=== PATIENT | female | born 1965 | race African-American/Black ===

== ENCOUNTER 2017-08-03 20:02 | Inpatient (IN) | payer OTHER ==
[~2017-08-03] VITALS: Ht 172.7 cm; Wt 113.9 kg
[~2017-08-03 20:02] MED LIST: CITA10TA4 PO; LEVO500T59 PO; LISI-338 PO; POTA20TA12 PO; TRIA1CAP3 PO
[2017-08-03] MEDS ORDERED: NITROGLYCERIN OINT 1 GM PACKET. TP ONE (20:30)
[2017-08-03] MEDS ORDERED: ASPIRIN CHEWABLE 81 MG TABLET. PO ONE (20:30)
[2017-08-03 20:34] LABS: BASO # 0.1 x10^3/uL (0.0-0.2); BASO % 1 % (0-3); EOS % 5 % (0-3); HEMATOCRIT 42.5 % (36.0-47.0); HEMOGLOBIN 14.4 g/dL (12.0-15.5); LYMPH # 3.3 x10^3/uL (1.0-4.8); LYMPH % 42 % (24-48); MEAN CORPUSCULAR HEMOGLOBIN 30 pg (25-35); MEAN CORPUSCULAR HGB CONC 34 g/dL (31-37); MEAN CORPUSCULAR VOLUME 89 fL (79-100); MONO % 8 % (0-9); NEUT % 44 % (31-73); PLATELET COUNT 255 x10^3/uL (140-400); RED BLOOD COUNT 4.78 x10^6/uL (3.50-5.40); WHITE BLOOD COUNT 7.8 x10^3/uL (4.0-11.0)
[2017-08-03] MEDS ORDERED: BISACODYL 10 MG SUPP.RECT. PR PRN (21:00)
[2017-08-03] MEDS ORDERED: CALCIUM CARBONATE 500 MG TAB.CHEW PO PRN (21:00)
[2017-08-03] MEDS ORDERED: MORPHINE SULFATE 4 MG/ML DISP.SYRIN. IV PRN (21:00)
[2017-08-03] MEDS ORDERED: ONDANSETRON PF 4 MG/2 ML VIAL. IV PRN (21:00)
[2017-08-03] MEDS ORDERED: ZOLPIDEM 5 MG TABLET. PO PRN (21:00)
[2017-08-03] MEDS ORDERED: KETOROLAC 15 MG/ML VIAL. IV PRN (21:00)
[2017-08-03] MEDS ORDERED: MAG HYDROX/ALUMINUM HYD/SIMETH 30 ML ORAL.SUSP PO PRN (21:00)
[2017-08-03] MEDS ORDERED: PROCHLORPERAZINE 10 MG/2 ML VIAL. IV PRN (21:00)
[2017-08-03] MEDS ORDERED: ACETAMINOPHEN 325 MG TABLET. PO PRN (21:00)
[2017-08-03] MEDS ORDERED: PROCHLORPERAZINE 25 MG SUPP.RECT. PR PRN (21:00)
[2017-08-03] MEDS ORDERED: IBUPROFEN 600 MG TABLET. PO PRN (21:00)
[2017-08-03] MEDS ORDERED: MAGNESIUM HYDROXIDE 2,400 MG/30 ML ORAL.SUSP. PO PRN (21:00)
[2017-08-03] MEDS ORDERED: LACTULOSE 20 GM/30 ML SOLUTION. PO PRN (21:00)
--- NOTE | 2017-08-03 21:13 | PDOC1 ---
History and Physical Date of Admission Date of Admission DATE: 08/03/17 TIME: 21:07 Identification/Chief Complaint Chief Complaint left sided cp moved to jaw Problems: Source Source: Caregiver, Chart review, Patient History of Present Illness History of Present Illness 52 y.o AA female with only HTN as past medical takes triamterene HCTZ at home, non smoker, non drinker, no personal hx CAD,. was at her son's [employer] today, was walking when had CP left sided, "uncomfortable" involved her left neck and jaw, mild SOA but no presyncopal or diaphoretic sxs., EKG ok, Trops pending, Admitted for CP r.o ACS, NO jj cardiac work up, has a pCP. GOt ASA 4 tabs and nitro, still feels like she has a migraine headache, pain in her left eye, photophobia but denies any hx migraine headache Past Medical History Cardiovascular: HTN Past Surgical History Past Surgical History: No pertinent history Family History Family History: No Significant Social History Smoke: No ALCOHOL: none Drugs: None Current Medications Current Medications Current Medications Nitroglycerin (Nitro-Bid Oint) 1 inch 1X ONCE TP Last administered on 20:44; Start 08/03/17 at 20:30; Stop 08/03/17 at 20:31; Status DC Aspirin (Children'S Aspirin) 324 mg 1X ONCE PO Last administered on 08/03/17t 20:43; Start 08/03/17 at 20:30; Stop 08/03/17 at 20:31; Status DC Ondansetron HCl (Zofran) 4 mg PRN Q6HRS PRN IV NAUSEA/VOMITING; Start 08/03/17 at 21:00; Status UNV Prochlorperazine Edisylate (Compazine) 10 mg PRN Q6HRS PRN IV NAUSEA/VOMITING; Start 08/03/17 at 21:00; Status UNV Prochlorperazine (Compazine) 25 mg PRN Q12HR PRN ID NAUSEA/VOMITING; Start at 21:00; Status UNV Al Hydroxide/Mg Hydroxide (Mylanta Plus Xs) 30 ml PRN Q3HRS PRN PO HEARTBURN / GAS; Start 08/03/17 at 21:00; Status UNV Calcium Carbonate/ Glycine (Tums) 500 mg PRN Q3HRS PRN PO UPSET STOMACH; Start 08/03/17 at 21:00; Status UNV Zolpidem Tartrate (Ambien) 5 mg PRN QHS PRN PO INSOMNIA, MAY REPEAT IN 1HR; Start 08/03/17 at 21:00; Status UNV Oxycodone HCl (Roxicodone) 5 mg PRN Q3HRS PRN PO BREAKTHROUGH PAIN; Start 08/03 at 21:00; Status UNV Morphine Sulfate 2 mg PRN Q2HR PRN IV PAIN; Start 08/03/17 at 21:00; Status UNV Ketorolac Tromethamine (Toradol) 15 mg PRN Q6HRS PRN IV PAIN; Start 08/03/17 at 21:00; Stop 08/08/17 at 20:59; Status UNV Acetaminophen (Tylenol) 650 mg PRN Q6HRS PRN PO Headaches, Temp > 101.5F; Start 08/03/17 at 21:00; Status UNV Ibuprofen (Motrin) 600 mg PRN Q6HRS PRN PO MILD PAIN; Start 08/03/17 at 21:00; Status UNV Magnesium Hydroxide (Milk Of Magnesia) 2,400 mg PRN Q12HR PRN PO CONSTIPATION; Start 08/03/17 at 21:00; Status UNV Lactulose 20 gm PRN Q12HR PRN PO CONSTIPATION; Start 08/03/17 at 21:00; Status UNV Bisacodyl (Dulcolax Supp) 10 mg PRN DAILY PRN ID CONSTIPATION; Start 08/03/17 at 21:00; Status UNV Enoxaparin Sodium (Lovenox 40mg Syringe) 40 mg Q24H SQ ; Start 08/03/17 at 21:00 ; Status UNV Active Scripts Active Levaquin (Levofloxacin) 500 Mg Tablet 1 Tab PO DAILY Lisinopril 5 Mg Tablet 1 Tab PO DAILY 30 Days Reported Citalopram Hbr (Citalopram Hydrobromide) 10 Mg Tablet 1 Tab PO DAILY Allergies Allergies: Coded Allergies: No Known Drug Allergies (Unverified , 06/17/14) ROS Review of System as per HPI all else is neg Physical Exam General: Alert, Oriented X3, Cooperative, No acute distress HEENT: Atraumatic, PERRLA, EOMI Lungs: Clear to auscultation, Normal air movement Heart: S1S2, RRR, no thrills, no rubs, no gallops, no murmurs, murmurs Cardiovascular: S1, S2 Breasts: Normal, Rt breast nml w/o mass, Lt breast nml w/o mass, Nipples normal Abdomen: Normal bowel sounds, Soft, No tenderness, No hepatosplenomegaly, No masses Rectal Exam: not examined Extremities: No clubbing, No cyanosis, No edema, Normal pulses, No tenderness/ swelling Skin: No rashes, No breakdown, No significant lesion Neuro: Normal gait, Normal speech, Strength at 5/5 X4 ext, Normal tone, Sensation intact, Cranial nerves 3-12 NL, Reflexes 2+ Psych/Mental Status: Mental status NL, Mood NL Vitals Vitals Vital Signs Date Time Temp Pulse Resp B/P (MAP) Pulse Ox O2 Delivery O2 Flow Rate FiO2 08/03/17 20:44 68 136/101 08/03/17 20:14 98.7 20 96 Room Air 98.7 Labs Labs Laboratory Tests Test 08/03/17 20:09 White Blood Count 7.8 x10^3/uL (4.0-11.0) Red Blood Count 4.78 x10^6/uL (3.50-5.40) Hemoglobin 14.4 g/dL (12.0-15.5) Hematocrit 42.5 % (36.0-47.0) Mean Corpuscular Volume 89 fL (79-100) Mean Corpuscular Hemoglobin 30 pg (25-35) Mean Corpuscular Hemoglobin Concent 34 g/dL (31-37) Red Cell Distribution Width 15.0 % (11.5-14.5) Platelet Count 255 x10^3/uL (140-400) Neutrophils (%) (Auto) 44 % (31-73) Lymphocytes (%) (Auto) 42 % (24-48) Monocytes (%) (Auto) 8 % (0-9) Eosinophils (%) (Auto) 5 % (0-3) Basophils (%) (Auto) 1 % (0-3) Neutrophils # (Auto) 3.4 x10^3uL (1.8-7.7) Lymphocytes # (Auto) 3.3 x10^3/uL (1.0-4.8) Monocytes # (Auto) 0.6 x10^3/uL (0.0-1.1) Eosinophils # (Auto) 0.4 x10^3/uL (0.0-0.7) Basophils # (Auto) 0.1 x10^3/uL (0.0-0.2) Laboratory Tests Test 08/03/17 20:09 White Blood Count 7.8 x10^3/uL (4.0-11.0) Red Blood Count 4.78 x10^6/uL (3.50-5.40) Hemoglobin 14.4 g/dL (12.0-15.5) Hematocrit 42.5 % (36.0-47.0) Mean Corpuscular Volume 89 fL (79-100) Mean Corpuscular Hemoglobin 30 pg (25-35) Mean Corpuscular Hemoglobin Concent 34 g/dL (31-37) Red Cell Distribution Width 15.0 % (11.5-14.5) Platelet Count 255 x10^3/uL (140-400) Neutrophils (%) (Auto) 44 % (31-73) Lymphocytes (%) (Auto) 42 % (24-48) Monocytes (%) (Auto) 8 % (0-9) Eosinophils (%) (Auto) 5 % (0-3) Basophils (%) (Auto) 1 % (0-3) Neutrophils # (Auto) 3.4 x10^3uL (1.8-7.7) Lymphocytes # (Auto) 3.3 x10^3/uL (1.0-4.8) Monocytes # (Auto) 0.6 x10^3/uL (0.0-1.1) Eosinophils # (Auto) 0.4 x10^3/uL (0.0-0.7) Basophils # (Auto) 0.1 x10^3/uL (0.0-0.2) VTE Prophylaxis Ordered VTE Prophylaxis Devices: Yes VTE Pharmacological Prophylaxi: Yes Assessment/Plan Assessment/Plan 1. Left sided CP in an adult, initial encounter 2. HEadaches, migraines vs something else (related to her CP?) 3. HTN, controlled PALn: Admit Cycle CE Cards consult COnt triamterene HCTZ home regimen NSAID Lovenox 120 x 1 just bec of CP nature (neck jaw radiation etc) Trops first set STILL PENDING Lipid panel in AM She is adamant it is not migraines - did order NSAIDs, if persist imitrex might be in order Seen at [facility] LIS Goss MD Aug 03, 2017 21:13
[2017-08-03] MEDS ORDERED: SUMAtriptan SUCCINATE 25 MG TABLET PO PRN (21:15)
[2017-08-03 22:13] LABS: ALBUMIN 3.8 g/dL (3.4-5.0); ALBUMIN/GLOBULIN RATIO 1.3 (1.0-1.7); CALCIUM 9.1 mg/dL (8.5-10.1); CREATININE 1.2 mg/dL (0.6-1.0); GFR 56.9; TOTAL BILIRUBIN 0.4 mg/dL (0.2-1.0); TOTAL PROTEIN 6.8 g/dL (6.4-8.2)
[2017-08-03 22:15] LABS: POTASSIUM 2.8 mmol/L (3.5-5.1)
--- NOTE | 2017-08-03 23:04 | PHYS DOC ---
Past Medical History Past Medical History: Depression, Hypertension Past Surgical History: , Tubal ligation Alcohol Use: None Drug Use: None Adult General Chief Complaint Chief Complaint: CHEST PAIN HPI HPI Patient is a 52 year old resents the ER today complaining of midsternal chest pain. Patient reports pain started while she was exerting herself at her son's birthday green party. Patient denies any fevers shakes chills nausea vomiting or diarrhea. Patient does complain of some mild shortness of breath. Patient complaining of pain radiating to her jaw. Patient denies any prior history of heart disease. Patient has never had a stress test in the past. Patient has any history of hypertension but no diabetes liver kidney or lung problems. Patient has no history of coronary artery disease. Patient does not smoke or drink. Patient is allergic to amlodipine and lisinopril. Review of systems Constitutional: Denies fever or chills Eyes: Denies change in visual acuity, redness, or eye pain All other review systems are negative except as documented in the history of present illness portion. Physical exam Constitutional: Well developed, well nourished, no acute distress, non-toxic appearance. HENT: Normocephalic, atraumatic, bilateral external ears normal, oropharynx moist, no oral exudates, nose normal. Eyes: conjunctiva normal, no discharge. Neck: Normal range of motion, no tenderness, supple, no stridor. Cardiovascular:Heart rate regular rhythm, Lungs & Thorax: Bilateral breath sounds clear to auscultation Abdomen: Bowel sounds normal, soft, no tenderness, no masses, no pulsatile masses. Skin: Warm, dry, Back: No tenderness, Extremities: No tenderness, no cyanosis, Neurologic: Alert and oriented X 3, normal motor function, normal sensory function, no focal deficits noted. Psychologic: Affect normal, judgement normal, mood normal. EKG reveals normal sinus rhythm with nonspecific ST-T wave abnormalities. No STEMI. Chest x-ray reveals no infiltrates or effusions. Assessment and plan This is a 52-year-old female with history of hypertension presents here today complaining of midsternal chest pain. Patient does have significant cardiac risk factors and presents with a story that will be consistent with angina. Patient is currently pain-free. Patient will be admitted to the hospital for further cardiac evaluation. Current Medications Current Medications Current Medications Medications (Trade) Dose Ordered Sig/Darren Start Time Stop Time Status Last Admin Dose Admin Acetaminophen (Tylenol) 650 mg PRN Q6HRS PRN 08/03/17 21:00 Al Hydroxide/Mg Hydroxide (Mylanta Plus Xs) 30 ml PRN Q3HRS PRN 08/03/17 21:00 Aspirin (Children'S Aspirin) 324 mg 1X ONCE 08/03/17 20:30 08/03/17 20:31 DC 08/03/17 20:43 324 MG Bisacodyl (Dulcolax Supp) 10 mg PRN DAILY PRN 08/03/17 21:00 Calcium Carbonate/ Glycine (Tums) 500 mg PRN Q3HRS PRN 08/03/17 21:00 Enoxaparin Sodium (Lovenox 120mg Syringe) 110 mg 1X ONCE 08/03/17 21:30 08/03/17 21:31 DC 08/03/17 21:36 110 MG Enoxaparin Sodium (Lovenox 40mg Syringe) 40 mg Q24H 08/04/17 21:00 Ibuprofen (Motrin) 600 mg PRN Q6HRS PRN 08/03/17 21:00 Ketorolac Tromethamine (Toradol) 15 mg PRN Q6HRS PRN 08/03/17 21:00 08/08/17 20:59 08/03/17 21:37 15 MG Lactulose 20 gm PRN Q12HR PRN 08/03/17 21:00 Magnesium Hydroxide (Milk Of Magnesia) 2,400 mg PRN Q12HR PRN 08/03/17 21:00 Morphine Sulfate 2 mg PRN Q2HR PRN 08/03/17 21:00 Nitroglycerin (Nitro-Bid Oint) 1 inch 1X ONCE 08/03/17 20:30 08/03/17 20:31 DC 08/03/17 20:44 1 INCH Ondansetron HCl (Zofran) 4 mg PRN Q6HRS PRN 08/03/17 21:00 Oxycodone HCl (Roxicodone) 5 mg PRN Q3HRS PRN 08/03/17 21:00 Prochlorperazine (Compazine) 25 mg PRN Q12HR PRN 08/03/17 21:00 Prochlorperazine Edisylate (Compazine) 10 mg PRN Q6HRS PRN 08/03/17 21:00 Sumatriptan Succinate (Imitrex) 25 mg PRN Q2HR PRN 08/03/17 21:15 Zolpidem Tartrate (Ambien) 5 mg PRN QHS PRN 08/03/17 21:00 Allergies Allergies Allergies Coded Allergies Type Severity Reaction Last Updated Verified No Known Drug Allergies 06/17/14 No Current Patient Data Vital Signs Vital Signs Date Time Temp Pulse Resp B/P (MAP) Pulse Ox O2 Delivery O2 Flow Rate FiO2 08/03/17 20:44 68 136/101 08/03/17 20:14 98.7 20 96 Room Air 98.7 Lab Values Laboratory Tests Test 08/03/17 20:09 08/03/17 21:40 White Blood Count 7.8 x10^3/uL (4.0-11.0) Red Blood Count 4.78 x10^6/uL (3.50-5.40) Hemoglobin 14.4 g/dL (12.0-15.5) Hematocrit 42.5 % (36.0-47.0) Mean Corpuscular Volume 89 fL (79-100) Mean Corpuscular Hemoglobin 30 pg (25-35) Mean Corpuscular Hemoglobin Concent 34 g/dL (31-37) Red Cell Distribution Width 15.0 % (11.5-14.5) H Platelet Count 255 x10^3/uL (140-400) Neutrophils (%) (Auto) 44 % (31-73) Lymphocytes (%) (Auto) 42 % (24-48) Monocytes (%) (Auto) 8 % (0-9) Eosinophils (%) (Auto) 5 % (0-3) H Basophils (%) (Auto) 1 % (0-3) Neutrophils # (Auto) 3.4 x10^3uL (1.8-7.7) Lymphocytes # (Auto) 3.3 x10^3/uL (1.0-4.8) Monocytes # (Auto) 0.6 x10^3/uL (0.0-1.1) Eosinophils # (Auto) 0.4 x10^3/uL (0.0-0.7) Basophils # (Auto) 0.1 x10^3/uL (0.0-0.2) Sodium Level 140 mmol/L (136-145) Potassium Level 2.8 mmol/L (3.5-5.1) *L Chloride Level 101 mmol/L (98-107) Carbon Dioxide Level 32 mmol/L (21-32) Anion Gap 7 (6-14) Blood Urea Nitrogen 11 mg/dL (7-20) Creatinine 1.2 mg/dL (0.6-1.0) H Estimated GFR (Cockcroft-Gault) 56.9 BUN/Creatinine Ratio 9 (6-20) Glucose Level 120 mg/dL (70-99) H Calcium Level 9.1 mg/dL (8.5-10.1) Total Bilirubin 0.4 mg/dL (0.2-1.0) Aspartate Amino Transferase (AST) 25 U/L (15-37) Alanine Aminotransferase (ALT) 41 U/L (14-59) Alkaline Phosphatase 64 U/L (46-116) Troponin I Quantitative < 0.017 ng/mL (0.000-0.055) Total Protein 6.8 g/dL (6.4-8.2) Albumin 3.8 g/dL (3.4-5.0) Albumin/Globulin Ratio 1.3 (1.0-1.7) Laboratory Tests 08/03/17 20:09 Laboratory Tests 08/03/17 21:40 EKG EKG [] Radiology/Procedures Radiology/Procedures [] Course & Med Decision Making Course & Med Decision Making Pertinent Labs and Imaging studies reviewed. (See chart for details) [] Dragon Disclaimer Dragon Disclaimer This electronic medical record was generated, in whole or in part, using a voice recognition dictation system. Departure Departure Impression: Primary Impression: Chest pain Additional Impression: Hypokalemia Disposition: ADMITTED INPATIENT Admitting Physician: Sylwia Marie Condition: IMPROVED Referrals: FRANCOIS LINO MD (PCP) Problem Qualifiers SÁNCHEZ ASKEW MD Aug 03, 2017 23:04
[2017-08-03] MEDS ORDERED: POTASSIUM CHLORIDE 20 MEQ TABLET.ER. PO ONE (23:30)
[2017-08-04 00:37] VITALS: BP 140/79
[2017-08-04] MEDS ORDERED: TRIA1CAP3 PO (01:22)
[2017-08-04 03:00] VITALS: BP 121/56
[2017-08-04 06:22] LABS: CKMB MASS 1.9 ng/mL (0.0-3.6)
[2017-08-04 07:00] VITALS: BP 120/68
--- NOTE | 2017-08-04 08:28 | RAD ---
AP chest. History: Chest pain AP view was taken of the chest. Lungs are clear. Heart is normal in size without heart failure. There is no effusion. Impression: 1. No acute chest disease.
--- NOTE | 2017-08-04 08:41 | CONS ---
DATE OF CONSULTATION: 08/04/2017 REASON FOR CONSULTATION: Chest pain and jaw pain. HISTORY OF PRESENT ILLNESS: The patient is a pleasant 52-year-old woman who came in to the hospital with some chest discomfort, but most prominently reports that she has had jaw pain and throbbing headache involving her left eye. In the ER, initial evaluation from a cardiac perspective did not reveal any significant pathology. In speaking with the patient regarding her cardiac symptoms, she denies any chest pain or shortness of breath at baseline. Most recently, she worked out on recumbent bike and reports that she had some palpitations, but otherwise did not have any significant chest discomfort or dyspnea. 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 She denies any prior cardiovascular history, otherwise. NYHA functional class at this time is 1. PAST MEDICAL HISTORY: Hypertension. SOCIAL HISTORY: The patient denies any alcohol, tobacco or illicit drug use. She is . FAMILY HISTORY: Noncontributory. ALLERGIES: AMLODIPINE AND LISINOPRIL. CARDIOVASCULAR MEDICATIONS: Hydrochlorothiazide, triamterene. REVIEW OF SYSTEMS: Negative for 10 out of 14 systems reviewed, unless otherwise mentioned above in HPI. PHYSICAL EXAMINATION: VITAL SIGNS: Afebrile, 84, 17, 121/56, 96% on room air. GENERAL: She is sleepy from pain medications, but otherwise easily arousable. HEAD AND NECK: Unremarkable. MUSCULOSKELETAL: She does have pain upon palpation of the left jaw and left evangelical. She has decreased range of motion. CARDIAC: Regular rate and rhythm without murmurs, rubs or gallops. LUNGS: Clear to auscultation bilaterally. ABDOMEN: Obese, but nontender and soft. EXTREMITIES: Without any clubbing, cyanosis or edema. There are diminished pulses on the right pedal area. MUSCULOSKELETAL: No trauma. NEUROLOGIC: There are no focal deficits, but she appears to have some mild photophobia, which resolved over during the interview. DIAGNOSTIC STUDIES: Potassium 2.8, creatinine 1.2. Troponin negative x 2, hemoglobin and platelets within normal limits. EKG is unavailable for review, but telemetry does not show any arrhythmias or significant ST-T wave changes. Chest x-ray reviewed and does not reveal any significant pathology. IMPRESSION: 1. Noncardiac chest discomfort. 2. New onset likely stress or migrainous headaches. 3. History of hypertension with hypokalemia secondary to diuretic use. RECOMMENDATIONS: Given the patient's persistent chest discomfort, although she has negative cardiac enzymes and EKG that does not reveal any significant abnormalities. Given her postmenopausal state and her symptoms, we will pursue ischemic testing in the form of a myocardial perfusion imaging study and rule out any significant obstructive pathology. Thank you for this consultation. JAGDISH BAILEY MD DR: SAIMA/miguel JOB#: [id number] / [id number]
[2017-08-04] MEDS ORDERED: REGADENOSON 0.4 MG/5 ML DISP.SYRIN. IV ONE (09:00)
[2017-08-04] MEDS: TRIAMTERENE/HCTZ 37.5/25MG TABLET. PO SCH (11:46)
[2017-08-04] MEDS: oxyCODONE IR 5 MG TABLET PO PRN ×2 (11:47→21:07)
--- NOTE | 2017-08-04 12:14 | PDOC ---
PROGRESS NOTES Chief Complaint Chief Complaint Assessment/Plan 1. Left sided CP in an adult, initial encounter 2. HEadaches, stress vs migraines 3. HTN, controlled History of Present Illness History of Present Illness says still left sided headaches but better Wishes to see neurologist MPI ordered and done by cards - read pending VS ok PLan: Await MPI Consult neuro Did get brii - unknown relief yet Juan RN she will try imitrex next time MAke NSAID RTC instead or prn Juan RN Suzan Vitals Vitals Vital Signs Date Time Temp Pulse Resp B/P (MAP) Pulse Ox O2 Delivery O2 Flow Rate FiO2 08/04/17 11:47 Room Air 08/04/17 07:00 98.2 69 24 120/68 (85) 96 98.2 Physical Exam General: Alert, Oriented X3, Cooperative, No acute distress Lungs: Clear Abdomen: Normal bowel sounds, Soft, No tenderness, No hepatosplenomegaly, No masses Extremities: No clubbing, No cyanosis, No edema, Normal pulses, No tenderness/ swelling Skin: No rashes, No breakdown, No significant lesion Labs LABS Laboratory Tests Test 08/03/17 20:09 08/03/17 21:40 08/04/17 04:30 White Blood Count 7.8 x10^3/uL (4.0-11.0) Red Blood Count 4.78 x10^6/uL (3.50-5.40) Hemoglobin 14.4 g/dL (12.0-15.5) Hematocrit 42.5 % (36.0-47.0) Mean Corpuscular Volume 89 fL (79-100) Mean Corpuscular Hemoglobin 30 pg (25-35) Mean Corpuscular Hemoglobin Concent 34 g/dL (31-37) Red Cell Distribution Width 15.0 % (11.5-14.5) Platelet Count 255 x10^3/uL (140-400) Neutrophils (%) (Auto) 44 % (31-73) Lymphocytes (%) (Auto) 42 % (24-48) Monocytes (%) (Auto) 8 % (0-9) Eosinophils (%) (Auto) 5 % (0-3) Basophils (%) (Auto) 1 % (0-3) Neutrophils # (Auto) 3.4 x10^3uL (1.8-7.7) Lymphocytes # (Auto) 3.3 x10^3/uL (1.0-4.8) Monocytes # (Auto) 0.6 x10^3/uL (0.0-1.1) Eosinophils # (Auto) 0.4 x10^3/uL (0.0-0.7) Basophils # (Auto) 0.1 x10^3/uL (0.0-0.2) Sodium Level 140 mmol/L (136-145) Potassium Level 2.8 mmol/L (3.5-5.1) Chloride Level 101 mmol/L (98-107) Carbon Dioxide Level 32 mmol/L (21-32) Anion Gap 7 (6-14) Blood Urea Nitrogen 11 mg/dL (7-20) Creatinine 1.2 mg/dL (0.6-1.0) Estimated GFR (Cockcroft-Gault) 56.9 BUN/Creatinine Ratio 9 (6-20) Glucose Level 120 mg/dL (70-99) Calcium Level 9.1 mg/dL (8.5-10.1) Total Bilirubin 0.4 mg/dL (0.2-1.0) Aspartate Amino Transf (AST/SGOT) 25 U/L (15-37) Alanine Aminotransferase (ALT/SGPT) 41 U/L (14-59) Alkaline Phosphatase 64 U/L (46-116) Troponin I Quantitative < 0.017 ng/mL (0.000-0.055) < 0.017 ng/mL (0.000-0.055) Total Protein 6.8 g/dL (6.4-8.2) Albumin 3.8 g/dL (3.4-5.0) Albumin/Globulin Ratio 1.3 (1.0-1.7) Creatine Kinase 314 U/L (26-192) Creatine Kinase MB (Mass) 1.9 ng/mL (0.0-3.6) Creatine Kinase MB Relative Index 0.6 % (0-4) Review of Systems Review of Systems headaches, left sided jaw pain Assessment and Plan Assessmemt and Plan Problems Medical Problems: (1) Hypokalemia Status: Acute Problems: Comment Review of Relevant I have reviewed the following items jolanta (where applicable) has been applied. Labs Laboratory Tests Test 08/03/17 20:09 08/03/17 21:40 08/04/17 04:30 White Blood Count 7.8 x10^3/uL (4.0-11.0) Red Blood Count 4.78 x10^6/uL (3.50-5.40) Hemoglobin 14.4 g/dL (12.0-15.5) Hematocrit 42.5 % (36.0-47.0) Mean Corpuscular Volume 89 fL (79-100) Mean Corpuscular Hemoglobin 30 pg (25-35) Mean Corpuscular Hemoglobin Concent 34 g/dL (31-37) Red Cell Distribution Width 15.0 % (11.5-14.5) Platelet Count 255 x10^3/uL (140-400) Neutrophils (%) (Auto) 44 % (31-73) Lymphocytes (%) (Auto) 42 % (24-48) Monocytes (%) (Auto) 8 % (0-9) Eosinophils (%) (Auto) 5 % (0-3) Basophils (%) (Auto) 1 % (0-3) Neutrophils # (Auto) 3.4 x10^3uL (1.8-7.7) Lymphocytes # (Auto) 3.3 x10^3/uL (1.0-4.8) Monocytes # (Auto) 0.6 x10^3/uL (0.0-1.1) Eosinophils # (Auto) 0.4 x10^3/uL (0.0-0.7) Basophils # (Auto) 0.1 x10^3/uL (0.0-0.2) Sodium Level 140 mmol/L (136-145) Potassium Level 2.8 mmol/L (3.5-5.1) Chloride Level 101 mmol/L (98-107) Carbon Dioxide Level 32 mmol/L (21-32) Anion Gap 7 (6-14) Blood Urea Nitrogen 11 mg/dL (7-20) Creatinine 1.2 mg/dL (0.6-1.0) Estimated GFR (Cockcroft-Gault) 56.9 BUN/Creatinine Ratio 9 (6-20) Glucose Level 120 mg/dL (70-99) Calcium Level 9.1 mg/dL (8.5-10.1) Total Bilirubin 0.4 mg/dL (0.2-1.0) Aspartate Amino Transf (AST/SGOT) 25 U/L (15-37) Alanine Aminotransferase (ALT/SGPT) 41 U/L (14-59) Alkaline Phosphatase 64 U/L (46-116) Troponin I Quantitative < 0.017 ng/mL (0.000-0.055) < 0.017 ng/mL (0.000-0.055) Total Protein 6.8 g/dL (6.4-8.2) Albumin 3.8 g/dL (3.4-5.0) Albumin/Globulin Ratio 1.3 (1.0-1.7) Creatine Kinase 314 U/L (26-192) Creatine Kinase MB (Mass) 1.9 ng/mL (0.0-3.6) Creatine Kinase MB Relative Index 0.6 % (0-4) Laboratory Tests Test 08/03/17 20:09 08/03/17 21:40 08/04/17 04:30 White Blood Count 7.8 x10^3/uL (4.0-11.0) Red Blood Count 4.78 x10^6/uL (3.50-5.40) Hemoglobin 14.4 g/dL (12.0-15.5) Hematocrit 42.5 % (36.0-47.0) Mean Corpuscular Volume 89 fL (79-100) Mean Corpuscular Hemoglobin 30 pg (25-35) Mean Corpuscular Hemoglobin Concent 34 g/dL (31-37) Red Cell Distribution Width 15.0 % (11.5-14.5) Platelet Count 255 x10^3/uL (140-400) Neutrophils (%) (Auto) 44 % (31-73) Lymphocytes (%) (Auto) 42 % (24-48) Monocytes (%) (Auto) 8 % (0-9) Eosinophils (%) (Auto) 5 % (0-3) Basophils (%) (Auto) 1 % (0-3) Neutrophils # (Auto) 3.4 x10^3uL (1.8-7.7) Lymphocytes # (Auto) 3.3 x10^3/uL (1.0-4.8) Monocytes # (Auto) 0.6 x10^3/uL (0.0-1.1) Eosinophils # (Auto) 0.4 x10^3/uL (0.0-0.7) Basophils # (Auto) 0.1 x10^3/uL (0.0-0.2) Sodium Level 140 mmol/L (136-145) Potassium Level 2.8 mmol/L (3.5-5.1) Chloride Level 101 mmol/L (98-107) Carbon Dioxide Level 32 mmol/L (21-32) Anion Gap 7 (6-14) Blood Urea Nitrogen 11 mg/dL (7-20) Creatinine 1.2 mg/dL (0.6-1.0) Estimated GFR (Cockcroft-Gault) 56.9 BUN/Creatinine Ratio 9 (6-20) Glucose Level 120 mg/dL (70-99) Calcium Level 9.1 mg/dL (8.5-10.1) Total Bilirubin 0.4 mg/dL (0.2-1.0) Aspartate Amino Transf (AST/SGOT) 25 U/L (15-37) Alanine Aminotransferase (ALT/SGPT) 41 U/L (14-59) Alkaline Phosphatase 64 U/L (46-116) Troponin I Quantitative < 0.017 ng/mL (0.000-0.055) < 0.017 ng/mL (0.000-0.055) Total Protein 6.8 g/dL (6.4-8.2) Albumin 3.8 g/dL (3.4-5.0) Albumin/Globulin Ratio 1.3 (1.0-1.7) Creatine Kinase 314 U/L (26-192) Creatine Kinase MB (Mass) 1.9 ng/mL (0.0-3.6) Creatine Kinase MB Relative Index 0.6 % (0-4) Medications Current Medications Nitroglycerin (Nitro-Bid Oint) 1 inch 1X ONCE TP Last administered on 20:44; Start 08/03/17 at 20:30; Stop 08/03/17 at 20:31; Status DC Aspirin (Children'S Aspirin) 324 mg 1X ONCE PO Last administered on 08/03/17 20:43; Start 08/03/17 at 20:30; Stop 08/03/17 at 20:31; Status DC Ondansetron HCl (Zofran) 4 mg PRN Q6HRS PRN IV NAUSEA/VOMITING; Start 08/03/17 at 21:00 Prochlorperazine Edisylate (Compazine) 10 mg PRN Q6HRS PRN IV NAUSEA/VOMITING; Start 08/03/17 at 21:00 Prochlorperazine (Compazine) 25 mg PRN Q12HR PRN OR NAUSEA/VOMITING; Start at 21:00 Al Hydroxide/Mg Hydroxide (Mylanta Plus Xs) 30 ml PRN Q3HRS PRN PO HEARTBURN / GAS; Start 08/03/17 at 21:00 Calcium Carbonate/ Glycine (Tums) 500 mg PRN Q3HRS PRN PO UPSET STOMACH; Start 08/03/17 at 21:00 Zolpidem Tartrate (Ambien) 5 mg PRN QHS PRN PO INSOMNIA, MAY REPEAT IN 1HR; Start 08/03/17 at 21:00 Oxycodone HCl (Roxicodone) 5 mg PRN Q3HRS PRN PO BREAKTHROUGH PAIN Last administered on 08/04/17 11:47; Start 08/03/17 at 21:00 Morphine Sulfate 2 mg PRN Q2HR PRN IV SEVERE PAIN Last administered on 09:13; Start 08/03/17 at 21:00 Ketorolac Tromethamine (Toradol) 15 mg PRN Q6HRS PRN IV MODERATE PAIN Last administered on 08/03/17 21:37; Start 08/03/17 at 21:00; Stop 08/08/17 at 20:59 Acetaminophen (Tylenol) 650 mg PRN Q6HRS PRN PO Headaches, Temp > 101.5F; Start 08/03/17 at 21:00 Ibuprofen (Motrin) 600 mg PRN Q6HRS PRN PO MILD PAIN; Start 08/03/17 at 21:00 Magnesium Hydroxide (Milk Of Magnesia) 2,400 mg PRN Q12HR PRN PO CONSTIPATION; Start 08/03/17 at 21:00 Lactulose 20 gm PRN Q12HR PRN PO CONSTIPATION; Start 08/03/17 at 21:00 Bisacodyl (Dulcolax Supp) 10 mg PRN DAILY PRN OR CONSTIPATION; Start 08/03/17 at 21:00 Enoxaparin Sodium (Lovenox 40mg Syringe) 40 mg Q24H SQ ; Start 08/04/17 at 21:00 Enoxaparin Sodium (Lovenox 120mg Syringe) 110 mg 1X ONCE SQ Last administered on 08/03/17 21:36; Start 08/03/17 at 21:30; Stop 08/03/17 at 21:31; Status DC Sumatriptan Succinate (Imitrex) 25 mg PRN Q2HR PRN PO MIGRAINE HEADACHE; Start 08/03/17 at 21:15 Potassium Chloride (Klor-Con) 40 meq 1X ONCE PO Last administered on 23:14; Start 08/03/17 at 23:30; Stop 08/03/17 at 23:31; Status DC Triamterene/HCTZ (Maxzide 37.5/ 25mg) 1 tab DAILY PO Last administered on 11:46; Start 08/04/17 at 09:00 Regadenoson (Lexiscan) 0.4 mg 1X ONCE IV Last administered on 08/04/17 09:00 ; Start 08/04/17 at 09:00; Stop 08/04/17 at 09:01; Status DC Active Scripts Active Reported Triamterene-Hctz 37.5-25 Mg Cp (Triamterene/Hydrochlorothiazid) 1 Each Capsule 1 Cap PO DAILY Vitals/I & O Vital Sign - Last 24 Hours 08/03/17 08/03/17 08/03/17 08/04/17 20:14 20:44 23:15 00:37 Temp 98.7 98.7 98.7 98.7 Pulse 71 68 58 62 Resp 20 16 18 B/P (MAP) 167/90 (115) 136/101 136/80 (98) 140/79 (99) Pulse Ox 96 98 98 O2 Delivery Room Air Room Air 08/04/17 08/04/17 08/04/17 08/04/17 03:00 07:00 08:10 09:13 Temp 99.1 98.2 99.1 98.2 Pulse 84 69 Resp 17 24 B/P (MAP) 121/56 (77) 120/68 (85) Pulse Ox 96 96 O2 Delivery Room Air Room Air Room Air Room Air 08/04/17 08/04/17 08/04/17 11:32 11:45 11:47 O2 Delivery Room Air Room Air Room Air LIS STEINER MD Aug 04, 2017 12:14
--- NOTE | 2017-08-04 12:50 | EKG ---
[facility] [address] [place] [address] Test Date: 2017-08-03 Test Time: 20:03:53 Pat Name: ANDREW ATKINSON Department: Room: 262 1 Gender: F Rocket Scientist: : 1965 Requested By: SÁNCHEZ ASKEW Order Number: [id number] Reading MD: Colin Meza Measurements Intervals [place] Rate: 71 P: 43 MA: 138 QRS: 3 QRSD: 90 T: 46 QT: 430 QTc: 473 Interpretive Statements SINUS RHYTHM LEFT ATRIAL ABNORMALITY NONSPECIFIC ST-T WAVE CHANGES. RI6.01 Unconfirmed report No previous ECG available for comparison Electronically Signed On 08-22-2017 10:40:11 CDT by Colin Meza
--- NOTE | 2017-08-04 13:04 | RAD ---
APPROVED REPORT Test Type: Pharmacological Stress Nurse/Tech: tonya padilla Test Indications: chest pain Cardiac History: HTN, SEE EHR Medications: SEE EHR Medical History: CHILD RESENDIZ ASTHMA, SEE EHR Resting ECG: SR Resting Heart Rate: 60 bpm Resting Blood Pressure: 115/68mmHg Pretest Chest Pain: No chest pain Nurse/Tech Notes LUNG SOUNDS CLEAR, S1S2. NITRO PATCH ON AND REMOVED PRIOR TO TEST. PT PRESENTED WITH A HEADACHE PRIOR TO BEGINNING OF TEST. Consent: The procedure was explained to the patient in lay terms. Informed consent was witnessed. Yasir eout was entered into [employer]. History and Stress Test performed by ARGENTINA Moreno, YAEL (Sharri) (N) Pharm. Details Pharmacologic stress testing was performed using 0.4mg per 5ml of regadenoson given intravenously ove r 7-10 seconds. Stress Symptoms COUGH. HEADACHE. POST EXERCISE Reason for Termination: Infusion complete Max HR: 103 bpm Max Blood Pressure: 117/70mmHg Chest Pain: No. Arrhythmia: No. ST Change: No. INTERPRETATION Stress EKG Conclusion: No evidence of ischemia by EKG. Imaging Protocol IMAGE PROTOCOL: Stress Tc-99m/rest Tc-99m 2 days Rest: Stress: Viability: Radiopharm.Tc99m Sestamibi [id number] Img Date 08/04/2017 Inj-Img [id number]. Stress Admin Site: IV - Left AntecubitalAdministrator: ARGENTINA Moreno, YAEL (R)(N) STRESS DATA End Diast. Vol.93.0mlAv. Heart Rate64.0bpm End Syst. Vol.34.0mlCO Index BSA0.0L/min Myocardial Cbdu089.0gEject. Zqbhpscd93.0% Stress Rates Pk. Fill Rate2.85EDV/secLVtime Pk. Fill 285.70msec Pk. Empty Rate3.56ESV/secLVtime Pk. Jycur966.01msec 11/07 Pk. Fill0.80EDV/sec Stress Scores Regional WT0.00Summed WT2.00 Regional WM0.00Summed WM0.00 LV Perfusion Normal perfusion at stress. Wall Motion Normal wall motion. LV Perf. Quant 17 Seg. SSS3.00 Stress Defect Extent (% LAD)0.00Rest Defect Extent (% LAD)Rev. Defect Extent (% LAD)0.00 Stress Defect Extent (% LCX) 5.00Rest Defect Extent (% LCX)Rev. Defect Extent (% LCX)0.00 Stress Defect Extent (% RCA)0.00Rest Defect Extent (% RCA)Rev. Defect Extent (% RCA)0.00 Stress Defect Extent (% BERTRAND)0.90Rest Defect Extent (% BERTRAND)Rev. Defect Extent (% BERTRAND)0.00 Other Information Quality:Good Risk Assessment: Low Risk Conclusion 1. No evidence of EKG changes with stress testing. 2. Normal perfusion at stress. Rest images not performed. 3. Low risk study. 4. EF > 60%.
[2017-08-04] MEDS: IBUPROFEN 600 MG TABLET. PO SCH ×2 (13:20→20:17)
[2017-08-04 15:29] VITALS: BP 125/64
[2017-08-04] MEDS: tiZANidine 4 MG TABLET. PO PRN (19:36)
[2017-08-04 19:40] VITALS: BP 132/66
[2017-08-04] MEDS: ENOXAPARIN 40 MG/0.4 ML SYRINGE. SQ SCH (20:17)
[2017-08-04 23:21] VITALS: BP 120/55
[2017-08-05 03:40] VITALS: BP 138/72
[2017-08-05] MEDS: oxyCODONE IR 5 MG TABLET PO PRN ×4 (04:40→20:52)
[2017-08-05 07:00] VITALS: BP 140/77
[2017-08-05] MEDS: TRIAMTERENE/HCTZ 37.5/25MG TABLET. PO SCH (09:04)
[2017-08-05] MEDS: tiZANidine 4 MG TABLET. PO PRN (09:04)
[2017-08-05] MEDS: IBUPROFEN 600 MG TABLET. PO SCH ×3 (10:40→20:52)
[2017-08-05 11:00] VITALS: BP 125/71
--- NOTE | 2017-08-05 13:00 | PDOC ---
PROGRESS NOTES Chief Complaint Chief Complaint Assessment/Plan 1. Left sided CP in an adult, initial encounter 2. HEadaches, stress vs migraines 3. HTN, controlled History of Present Illness History of Present Illness Still some headaches MPI is low risk study Neuro has ordered MRI/.MRA PLAn: Await MRI.MRA Ok to t.o CVC - non tele bed Cont pain meds for the headache Cleared from cards to dc cleo Mares Vitals Vitals Vital Signs Date Time Temp Pulse Resp B/P (MAP) Pulse Ox O2 Delivery O2 Flow Rate FiO2 08/05/17 11:00 97.9 63 16 125/71 (89) 97 Room Air 97.9 Physical Exam General: Alert, Oriented X3, Cooperative, No acute distress Lungs: Clear Abdomen: Normal bowel sounds, Soft, No tenderness, No hepatosplenomegaly, No masses Extremities: No clubbing, No cyanosis, No edema, Normal pulses, No tenderness/ swelling Skin: No rashes, No breakdown, No significant lesion Review of Systems Review of Systems headaches Assessment and Plan Assessmemt and Plan Problems Medical Problems: (1) Hypokalemia Status: Acute Problems: Comment Review of Relevant I have reviewed the following items jolanta (where applicable) has been applied. Labs Laboratory Tests Test 08/03/17 20:09 08/03/17 21:40 08/04/17 04:30 White Blood Count 7.8 x10^3/uL (4.0-11.0) Red Blood Count 4.78 x10^6/uL (3.50-5.40) Hemoglobin 14.4 g/dL (12.0-15.5) Hematocrit 42.5 % (36.0-47.0) Mean Corpuscular Volume 89 fL (79-100) Mean Corpuscular Hemoglobin 30 pg (25-35) Mean Corpuscular Hemoglobin Concent 34 g/dL (31-37) Red Cell Distribution Width 15.0 % (11.5-14.5) Platelet Count 255 x10^3/uL (140-400) Neutrophils (%) (Auto) 44 % (31-73) Lymphocytes (%) (Auto) 42 % (24-48) Monocytes (%) (Auto) 8 % (0-9) Eosinophils (%) (Auto) 5 % (0-3) Basophils (%) (Auto) 1 % (0-3) Neutrophils # (Auto) 3.4 x10^3uL (1.8-7.7) Lymphocytes # (Auto) 3.3 x10^3/uL (1.0-4.8) Monocytes # (Auto) 0.6 x10^3/uL (0.0-1.1) Eosinophils # (Auto) 0.4 x10^3/uL (0.0-0.7) Basophils # (Auto) 0.1 x10^3/uL (0.0-0.2) Sodium Level 140 mmol/L (136-145) Potassium Level 2.8 mmol/L (3.5-5.1) Chloride Level 101 mmol/L (98-107) Carbon Dioxide Level 32 mmol/L (21-32) Anion Gap 7 (6-14) Blood Urea Nitrogen 11 mg/dL (7-20) Creatinine 1.2 mg/dL (0.6-1.0) Estimated GFR (Cockcroft-Gault) 56.9 BUN/Creatinine Ratio 9 (6-20) Glucose Level 120 mg/dL (70-99) Calcium Level 9.1 mg/dL (8.5-10.1) Total Bilirubin 0.4 mg/dL (0.2-1.0) Aspartate Amino Transf (AST/SGOT) 25 U/L (15-37) Alanine Aminotransferase (ALT/SGPT) 41 U/L (14-59) Alkaline Phosphatase 64 U/L (46-116) Troponin I Quantitative < 0.017 ng/mL (0.000-0.055) < 0.017 ng/mL (0.000-0.055) Total Protein 6.8 g/dL (6.4-8.2) Albumin 3.8 g/dL (3.4-5.0) Albumin/Globulin Ratio 1.3 (1.0-1.7) Creatine Kinase 314 U/L (26-192) Creatine Kinase MB (Mass) 1.9 ng/mL (0.0-3.6) Creatine Kinase MB Relative Index 0.6 % (0-4) Medications Current Medications Nitroglycerin (Nitro-Bid Oint) 1 inch 1X ONCE TP Last administered on t 20:44; Start 08/03/17 at 20:30; Stop 08/03/17 at 20:31; Status DC Aspirin (Children'S Aspirin) 324 mg 1X ONCE PO Last administered on 08/03/17 20:43; Start 08/03/17 at 20:30; Stop 08/03/17 at 20:31; Status DC Ondansetron HCl (Zofran) 4 mg PRN Q6HRS PRN IV NAUSEA/VOMITING, 1ST CHOICE; Start 08/03/17 at 21:00 Prochlorperazine Edisylate (Compazine) 10 mg PRN Q6HRS PRN IV NAUSEA/VOMITING, 2ND CHOICE; Start 08/03/17 at 21:00 Prochlorperazine (Compazine) 25 mg PRN Q12HR PRN CO NAUSEA/VOMITING; Start at 21:00 Al Hydroxide/Mg Hydroxide (Mylanta Plus Xs) 30 ml PRN Q3HRS PRN PO HEARTBURN / GAS; Start 08/03/17 at 21:00 Calcium Carbonate/ Glycine (Tums) 500 mg PRN Q3HRS PRN PO UPSET STOMACH; Start 08/03/17 at 21:00 Zolpidem Tartrate (Ambien) 5 mg PRN QHS PRN PO INSOMNIA, MAY REPEAT IN 1HR; Start 08/03/17 at 21:00 Oxycodone HCl (Roxicodone) 5 mg PRN Q3HRS PRN PO BREAKTHROUGH PAIN Last administered on 08/05/17 09:05; Start 08/03/17 at 21:00 Morphine Sulfate 2 mg PRN Q2HR PRN IV SEVERE PAIN Last administered on 09:13; Start 08/03/17 at 21:00 Ketorolac Tromethamine (Toradol) 15 mg PRN Q6HRS PRN IV MODERATE PAIN Last administered on 08/03/17 21:37; Start 08/03/17 at 21:00; Stop 08/08/17 at 20:59 Acetaminophen (Tylenol) 650 mg PRN Q6HRS PRN PO Headaches, Temp > 101.5F; Start 08/03/17 at 21:00 Ibuprofen (Motrin) 600 mg PRN Q6HRS PRN PO MILD PAIN; Start 08/03/17 at 21:00; Stop 08/04/17 at 12:13; Status DC Magnesium Hydroxide (Milk Of Magnesia) 2,400 mg PRN Q12HR PRN PO CONSTIPATION; Start 08/03/17 at 21:00 Lactulose 20 gm PRN Q12HR PRN PO CONSTIPATION; Start 08/03/17 at 21:00 Bisacodyl (Dulcolax Supp) 10 mg PRN DAILY PRN CO CONSTIPATION; Start 08/03/17 at 21:00 Enoxaparin Sodium (Lovenox 40mg Syringe) 40 mg Q24H SQ Last administered on 20:17; Start 08/04/17 at 21:00 Enoxaparin Sodium (Lovenox 120mg Syringe) 110 mg 1X ONCE SQ Last administered on 08/03/17 21:36; Start 08/03/17 at 21:30; Stop 08/03/17 at 21:31; Status DC Sumatriptan Succinate (Imitrex) 25 mg PRN Q2HR PRN PO MIGRAINE HEADACHE Last administered on 08/04/17 13:21; Start 08/03/17 at 21:15; Stop 08/04/17 at 19:07 ; Status DC Potassium Chloride (Klor-Con) 40 meq 1X ONCE PO Last administered on 23:14; Start 08/03/17 at 23:30; Stop 08/03/17 at 23:31; Status DC Triamterene/HCTZ (Maxzide 37.5/ 25mg) 1 tab DAILY PO Last administered on 09:04; Start 08/04/17 at 09:00 Regadenoson (Lexiscan) 0.4 mg 1X ONCE IV Last administered on 08/04/17 09:00 ; Start 08/04/17 at 09:00; Stop 08/04/17 at 09:01; Status DC Ibuprofen (Motrin) 600 mg TID PO Last administered on 08/05/17 10:40; Start at 13:00 Tizanidine HCl (Zanaflex) 4 mg PRN Q8HRS PRN PO MIGRAINE HEADACHE Last administered on 08/05/17 09:04; Start 08/04/17 at 19:15 Active Scripts Active Reported Triamterene-Hctz 37.5-25 Mg Cp (Triamterene/Hydrochlorothiazid) 1 Each Capsule 1 Cap PO DAILY Vitals/I & O Vital Sign - Last 24 Hours 08/04/17 08/04/17 08/04/17 08/04/17 15:29 19:40 20:00 21:07 Temp 98.3 98.3 98.3 98.3 Pulse 50 50 Resp 18 20 B/P (MAP) 125/64 (84) 132/66 (88) Pulse Ox 97 97 96 O2 Delivery Room Air Room Air Room Air Room Air 08/04/17 08/05/17 08/05/17 08/05/17 23:21 03:40 04:40 05:40 Temp 98.4 97.9 98.4 97.9 Pulse 59 63 Resp 20 18 20 20 B/P (MAP) 120/55 (76) 138/72 (94) Pulse Ox 98 98 97 98 O2 Delivery Room Air Room Air Room Air 08/05/17 08/05/17 08/05/17 08/05/17 07:00 08:10 09:05 10:00 Temp 97.9 97.9 Pulse 62 B/P (MAP) 140/77 (98) Pulse Ox 98 O2 Delivery Room Air Room Air Room Air Room Air 08/05/17 11:00 Temp 97.9 97.9 Pulse 63 Resp 16 B/P (MAP) 125/71 (89) Pulse Ox 97 O2 Delivery Room Air Intake and Output 08/05/17 08/05/17 08/06/17 15:00 23:00 07:00 Intake Total 500 ml Balance 500 ml LIS STEINER MD Aug 05, 2017 13:00
[2017-08-05 15:00] VITALS: BP 119/66
--- NOTE | 2017-08-05 17:00 | PDOC2 ---
CONSULT Date of Consult Date of Consult DATE: 08/05/17 TIME: 16:59 History of Present Illness Reason for Visit: This patient is 52-year-old woman who has history of hypertension nonsmoker. She was at her son's green party and was walking and had some left-sided chest pain patient also notices some shortness of breath. Patient denies any syncope or any passing out sensation patient is also having some left-sided headache denies any complaint of blurring of vision or loss of vision. Patient does not have any nausea. She notices some paresthesias on his left upper extremity she denies any complains of tingling numbness on her face she denies any weakness in any extremities patient does not have any symptoms of slurring of speech or difficulty speaking patient does not have any complaints of dizziness. Left-sided chest pain. Cardiac evaluation Left-sided headache. Features of migraine headache. We will check MRI brain MRA head and neck to rule out any acute process Past Medical History Cardiovascular: HTN Past Surgical History Past Surgical History: No pertinent history Family History Family History: No Significant Social History No ALCOHOL: none Drugs: None Current Problem List Problem List Problems Medical Problems: (1) Hypokalemia Status: Acute Current Medications Current Medications Current Medications Nitroglycerin (Nitro-Bid Oint) 1 inch 1X ONCE TP Last administered on 20:44; Start 08/03/17 at 20:30; Stop 08/03/17 at 20:31; Status DC Aspirin (Children'S Aspirin) 324 mg 1X ONCE PO Last administered on 08/03/17 20:43; Start 08/03/17 at 20:30; Stop 08/03/17 at 20:31; Status DC Ondansetron HCl (Zofran) 4 mg PRN Q6HRS PRN IV NAUSEA/VOMITING, 1ST CHOICE; Start 08/03/17 at 21:00 Prochlorperazine Edisylate (Compazine) 10 mg PRN Q6HRS PRN IV NAUSEA/VOMITING, 2ND CHOICE; Start 08/03/17 at 21:00 Prochlorperazine (Compazine) [address] Q12HR PRN CT NAUSEA/VOMITING; Start at 21:00 Al Hydroxide/Mg Hydroxide (Mylanta Plus Xs) 30 ml PRN Q3HRS PRN PO HEARTBURN / GAS; Start 08/03/17 at 21:00 Calcium Carbonate/ Glycine (Tums) 500 mg PRN Q3HRS PRN PO UPSET STOMACH; Start 08/03/17 at 21:00 Zolpidem Tartrate (Ambien) 5 mg PRN QHS PRN PO INSOMNIA, MAY REPEAT IN 1HR; Start 08/03/17 at 21:00 Oxycodone HCl (Roxicodone) 5 mg PRN Q3HRS PRN PO BREAKTHROUGH PAIN Last administered on 08/05/17 14:54; Start 08/03/17 at 21:00 Morphine Sulfate 2 mg PRN Q2HR PRN IV SEVERE PAIN Last administered on 09:13; Start 08/03/17 at 21:00 Ketorolac Tromethamine (Toradol) 15 mg PRN Q6HRS PRN IV MODERATE PAIN Last administered on 08/03/17 21:37; Start 08/03/17 at 21:00; Stop 08/08/17 at 20:59 Acetaminophen (Tylenol) 650 mg PRN Q6HRS PRN PO Headaches, Temp > 101.5F; Start 08/03/17 at 21:00 Ibuprofen (Motrin) 600 mg PRN Q6HRS PRN PO MILD PAIN; Start 08/03/17 at 21:00; Stop 08/04/17 at 12:13; Status DC Magnesium Hydroxide (Milk Of Magnesia) 2,400 mg PRN Q12HR PRN PO CONSTIPATION; Start 08/03/17 at 21:00 Lactulose 20 gm PRN Q12HR PRN PO CONSTIPATION; Start 08/03/17 at 21:00 Bisacodyl (Dulcolax Supp) [address] CONSTIPATION; Start 08/03/17 at 21:00 Enoxaparin Sodium (Lovenox 40mg Syringe) 40 mg Q24H SQ Last administered on 20:17; Start 08/04/17 at 21:00 Enoxaparin Sodium (Lovenox 120mg Syringe) 110 mg 1X ONCE SQ Last administered on 08/03/17 21:36; Start 08/03/17 at 21:30; Stop 08/03/17 at 21:31; Status DC Sumatriptan Succinate (Imitrex) 25 mg PRN Q2HR PRN PO MIGRAINE HEADACHE Last administered on 08/04/17 13:21; Start 08/03/17 at 21:15; Stop 08/04/17 at 19:07 ; Status DC Potassium Chloride (Klor-Con) 40 meq 1X ONCE PO Last administered on 23:14; Start 08/03/17 at 23:30; Stop 08/03/17 at 23:31; Status DC Triamterene/HCTZ (Maxzide 37.5/ 25mg) 1 tab DAILY PO Last administered on 09:04; Start 08/04/17 at 09:00 Regadenoson (Lexiscan) 0.4 mg 1X ONCE IV Last administered on 08/04/17 09:00 ; Start 08/04/17 at 09:00; Stop 08/04/17 at 09:01; Status DC Ibuprofen (Motrin) 600 mg TID PO Last administered on 08/05/17 14:55; Start at 13:00 Tizanidine HCl (Zanaflex) 4 mg PRN Q8HRS PRN PO MIGRAINE HEADACHE Last administered on 08/05/17 09:04; Start 08/04/17 at 19:15 Active Scripts Active Reported Triamterene-Hctz 37.5-25 Mg Cp (Triamterene/Hydrochlorothiazid) 1 Each Capsule 1 Cap PO DAILY Allergies Allergies: Coded Allergies: amlodipine (Verified Allergy, Intermediate, 08/04/17) pt unsure of reaction lisinopril (Verified Allergy, Intermediate, 08/04/17) Physical Exam Physical Exam REVIEW OF SYSTEMS: Otherwise, not [id number] review of systems. PHYSICAL EXAMINATION: General appearance is in acute distress. HEENT: Normocephalic and nontraumatic. Eyes, nose, ears, and throat are unremarkable. Neck is supple. No lymphadenopathy. No crepitus. Cardiovascular: S1, S2, regular rate and rhythm. Pulmonary: Clear to auscultation bilaterally. Abdomen: Bowel sounds are positive. Abdomen is soft, nontender, and nondistended. NEUROLOGICAL EXAMINATION: Alert Oriented to time, place and person. PERRL. EOMI. CN: no focal findings. Muscle tone: within normal. Muscle strength: 5 DTR: 2 Plantar reflex: Flexor response bilaterally Gait: not examined in bed. Sensory exam: no abnormal findings. No obvious cerebellar signs elicited. Vitals VITALS Vital Signs Date Time Temp Pulse Resp B/P (MAP) Pulse Ox O2 Delivery O2 Flow Rate FiO2 08/05/17 14:54 Room Air 08/05/17 11:00 97.9 63 16 125/71 (89) 97 97.9 Labs Labs Laboratory Tests Test 08/03/17 20:09 08/03/17 21:40 08/04/17 04:30 08/05/17 14:05 White Blood Count 7.8 x10^3/uL (4.0-11.0) Red Blood Count 4.78 x10^6/uL (3.50-5.40) Hemoglobin 14.4 g/dL (12.0-15.5) Hematocrit 42.5 % (36.0-47.0) Mean Corpuscular Volume 89 fL (79-100) Mean Corpuscular Hemoglobin 30 pg (25-35) Mean Corpuscular Hemoglobin Concent 34 g/dL (31-37) Red Cell Distribution Width 15.0 % (11.5-14.5) Platelet Count 255 x10^3/uL (140-400) Neutrophils (%) (Auto) 44 % (31-73) Lymphocytes (%) (Auto) 42 % (24-48) Monocytes (%) (Auto) 8 % (0-9) Eosinophils (%) (Auto) 5 % (0-3) Basophils (%) (Auto) 1 % (0-3) Neutrophils # (Auto) 3.4 x10^3uL (1.8-7.7) Lymphocytes # (Auto) 3.3 x10^3/uL (1.0-4.8) Monocytes # (Auto) 0.6 x10^3/uL (0.0-1.1) Eosinophils # (Auto) 0.4 x10^3/uL (0.0-0.7) Basophils # (Auto) 0.1 x10^3/uL (0.0-0.2) Sodium Level 140 mmol/L (136-145) Potassium Level 2.8 mmol/L (3.5-5.1) 3.2 mmol/L (3.5-5.1) Chloride Level 101 mmol/L (98-107) Carbon Dioxide Level 32 mmol/L (21-32) Anion Gap 7 (6-14) Blood Urea Nitrogen 11 mg/dL (7-20) Creatinine 1.2 mg/dL (0.6-1.0) Estimated GFR (Cockcroft-Gault) 56.9 BUN/Creatinine Ratio 9 (6-20) Glucose Level 120 mg/dL (70-99) Calcium Level 9.1 mg/dL (8.5-10.1) Total Bilirubin 0.4 mg/dL (0.2-1.0) Aspartate Amino Transf (AST/SGOT) 25 U/L (15-37) Alanine Aminotransferase (ALT/SGPT) 41 U/L (14-59) Alkaline Phosphatase 64 U/L (46-116) Troponin I Quantitative < 0.017 ng/mL (0.000-0.055) < 0.017 ng/mL (0.000-0.055) Total Protein 6.8 g/dL (6.4-8.2) Albumin 3.8 g/dL (3.4-5.0) Albumin/Globulin Ratio 1.3 (1.0-1.7) Creatine Kinase 314 U/L (26-192) Creatine Kinase MB (Mass) 1.9 ng/mL (0.0-3.6) Creatine Kinase MB Relative Index 0.6 % (0-4) Laboratory Tests Test 08/05/17 14:05 Potassium Level 3.2 mmol/L (3.5-5.1) Assessment/Plan Assessment/Plan This patient is 52-year-old woman who has history of hypertension nonsmoker. She was at her son's green party and was walking and had some left-sided chest pain patient also notices some shortness of breath. Patient denies any syncope or any passing out sensation patient is also having some left-sided headache denies any complaint of blurring of vision or loss of vision. Patient does not have any nausea. She notices some paresthesias on his left upper extremity she denies any complains of tingling numbness on her face she denies any weakness in any extremities patient does not have any symptoms of slurring of speech or difficulty speaking patient does not have any complaints of dizziness. Left-sided chest pain. Cardiac evaluation Left-sided headache. Features of migraine headache. We will check MRI brain MRA head and neck to rule out any acute process If her headaches are persistent patient may need a preventative headache medicine like a low-dose Elavil. can also give a trial of low-dose steroid as a tapering dose to help with acute phase of headache patient is not interested in taking steroids. Does not recommend Imitrex until cardiac workup is clear for chest pain. Headaches are improving. Recommend follow-up as outpatient. Plan discussed in detail with patient. LILLY BAILEY MD Aug 05, 2017 17:00
[2017-08-05 19:00] VITALS: BP 140/68
[2017-08-05] MEDS: ENOXAPARIN 40 MG/0.4 ML SYRINGE. SQ SCH (20:52)
[2017-08-05 23:00] VITALS: BP 130/85
[2017-08-06 03:00] VITALS: BP 131/86
[2017-08-06] MEDS: oxyCODONE IR 5 MG TABLET PO PRN ×2 (03:16→09:34)
[2017-08-06 07:45] VITALS: BP 144/81
[2017-08-06] MEDS ORDERED: OXYC5TAB95 PO (08:35)
--- NOTE | 2017-08-06 09:26 | RAD ---
Magnetic resonance angiography (MRA) of the brain without contrast 08/05/2017 Magnetic resonance angiography (MRA) of the neck without contrast INDICATION: Migraines COMPARISON: None available TECHNIQUE: Magnetic resonance angiography of the [place] was performed without intravenous contrast. [id number]-rw-[id number] technique was utilized with maximum intensity projection images provided for further evaluation of the cerebral vasculature. Magnetic resonance angiography of the neck was performed without intravenous contrast. Utilizing a separate data acquisition sac, [id number] technique was utilized with maximum intensity projection images provided for further evaluation of the neck vasculature. FINDINGS: NECK: Thoracic aorta is normal in caliber. A three-vessel aortic arch is identified. Origins of the brachycephalic vessels are normal. Motion artifact limits evaluation. Right common carotid artery is normal in course and caliber. There is no significant stenosis of the proximal right internal carotid artery at the right carotid bifurcation. Right external carotid artery is normal in course and caliber. Left common carotid artery is normal in course and caliber. There is no significant stenosis of the proximal left internal carotid artery at the carotid bifurcation. Left external carotid artery is normal in course and caliber. Patent origin of the cervical vertebral arteries. Normal course and caliber of the vertebral arteries. [place]: Course and caliber of the intracranial internal carotid arteries is normal. Anterior cerebral arteries are normal. Middle cerebral arteries and sylvian branches are normal in caliber. Vertebral arteries are codominant. Basilar artery is normal in course and caliber. Posterior cerebral arteries are normal in course and caliber. Superior cerebellar arteries, anterior inferior cerebellar arteries and posterior inferior cerebellar arteries are normal. There is no aneurysm, vascular malformation or high-grade stenosis/large vessel occlusion. Nonvascular findings: Ventricles, sulci and basal cisterns are normal in appearance. Visualized portions of the brain parenchyma and neck soft tissues are normal in appearance. IMPRESSION: 1. Patent [place] of [place] without evidence for aneurysm, vascular malformation or high-grade stenosis/large vessel occlusion. 2. No evidence for significant carotid stenosis. 3. Vertebral arteries are normal in course and caliber. Electronically signed by: Farideh Gilbert MD (08/06/2017 9:23 AM) [id number]
--- NOTE | 2017-08-06 09:26 | RAD ---
Magnetic resonance angiography (MRA) of the brain without contrast 08/05/2017 Magnetic resonance angiography (MRA) of the neck without contrast INDICATION: Migraines COMPARISON: None available TECHNIQUE: Magnetic resonance angiography of the [place] was performed without intravenous contrast. Ugqb-yn-[id number] technique was utilized with maximum intensity projection images provided for further evaluation of the cerebral vasculature. Magnetic resonance angiography of the neck was performed without intravenous contrast. Utilizing a separate data acquisition sac, [id number]-[id number] technique was utilized with maximum intensity projection images provided for further evaluation of the neck vasculature. FINDINGS: NECK: Thoracic aorta is normal in caliber. A three-vessel aortic arch is identified. Origins of the brachycephalic vessels are normal. Motion artifact limits evaluation. Right common carotid artery is normal in course and caliber. There is no significant stenosis of the proximal right internal carotid artery at the right carotid bifurcation. Right external carotid artery is normal in course and caliber. Left common carotid artery is normal in course and caliber. There is no significant stenosis of the proximal left internal carotid artery at the carotid bifurcation. Left external carotid artery is normal in course and caliber. Patent origin of the cervical vertebral arteries. Normal course and caliber of the vertebral arteries. [place] of [place]: Course and caliber of the intracranial internal carotid arteries is normal. Anterior cerebral arteries are normal. Middle cerebral arteries and sylvian branches are normal in caliber. Vertebral arteries are codominant. Basilar artery is normal in course and caliber. Posterior cerebral arteries are normal in course and caliber. Superior cerebellar arteries, anterior inferior cerebellar arteries and posterior inferior cerebellar arteries are normal. There is no aneurysm, vascular malformation or high-grade stenosis/large vessel occlusion. Nonvascular findings: Ventricles, sulci and basal cisterns are normal in appearance. Visualized portions of the brain parenchyma and neck soft tissues are normal in appearance. IMPRESSION: 1. Patent [place] without evidence for aneurysm, vascular malformation or high-grade stenosis/large vessel occlusion. 2. No evidence for significant carotid stenosis. 3. Vertebral arteries are normal in course and caliber. Electronically signed by: Farideh Gilbert MD (08/06/2017 9:23 AM) [id number]
[2017-08-06] MEDS: TRIAMTERENE/HCTZ 37.5/25MG TABLET. PO SCH (09:33)
[2017-08-06] MEDS: IBUPROFEN 600 MG TABLET. PO SCH ×2 (09:34→14:00)
[2017-08-06 11:00] VITALS: BP 145/86
--- NOTE | 2017-08-06 11:55 | PDOC ---
PROGRESS NOTES Assessment Problems Medical Problems: (1) Hypokalemia Status: Acute Migraine headaches Chest pain, workup in progress Plan MRI brain Headaches are better, will hold off on prevention medications Patient can follow up with me in 6 weeks Subjective Headaches are better, 01/12 Objective Vital Signs Date Time Temp Pulse Resp B/P (MAP) Pulse Ox O2 Delivery O2 Flow Rate FiO2 08/06/17 11:00 97.9 68 20 145/86 (105) 99 Room Air 97.9 Intake and Output 08/07/17 07:00 Intake Total 240 ml Balance 240 ml Intake Oral 240 ml PHYSICAL EXAM Alert. Oriented to time, place and person. PERRL. EOMI. CN: no focal findings. Muscle tone: normal. Muscle strength:5/5 DTR: 2+ Plantar reflex: flexor Gait: not examined in bed. Sensory exam: no abnormal findings. No cerebellar signs elicited. Review of Relevant I have reviewed the following items jolanta (where applicable) has been applied. Labs Laboratory Tests Test 08/05/17 14:05 Potassium Level 3.2 mmol/L (3.5-5.1) Laboratory Tests Test 08/05/17 14:05 Potassium Level 3.2 mmol/L (3.5-5.1) Medications Current Medications Nitroglycerin (Nitro-Bid Oint) 1 inch 1X ONCE TP Last administered on 20:44; Start 08/03/17 at 20:30; Stop 08/03/17 at 20:31; Status DC Aspirin (Children'S Aspirin) 324 mg 1X ONCE PO Last administered on 08/03/17 20:43; Start 08/03/17 at 20:30; Stop 08/03/17 at 20:31; Status DC Ondansetron HCl (Zofran) 4 mg PRN Q6HRS PRN IV NAUSEA/VOMITING, 1ST CHOICE; Start 08/03/17 at 21:00 Prochlorperazine Edisylate (Compazine) 10 mg PRN Q6HRS PRN IV NAUSEA/VOMITING, 2ND CHOICE; Start 08/03/17 at 21:00 Prochlorperazine (Compazine) 25 mg PRN Q12HR PRN AL NAUSEA/VOMITING; Start at 21:00 Al Hydroxide/Mg Hydroxide (Mylanta Plus Xs) 30 ml PRN Q3HRS PRN PO HEARTBURN / GAS; Start 08/03/17 at 21:00 Calcium Carbonate/ Glycine (Tums) 500 mg PRN Q3HRS PRN PO UPSET STOMACH; Start 08/03/17 at 21:00 Zolpidem Tartrate (Ambien) 5 mg PRN QHS PRN PO INSOMNIA, MAY REPEAT IN 1HR; Start 08/03/17 at 21:00 Oxycodone HCl (Roxicodone) 5 mg PRN Q3HRS PRN PO BREAKTHROUGH PAIN Last administered on 08/06/17 09:34; Start 08/03/17 at 21:00 Morphine Sulfate 2 mg PRN Q2HR PRN IV SEVERE PAIN Last administered on 09:13; Start 08/03/17 at 21:00 Ketorolac Tromethamine (Toradol) 15 mg PRN Q6HRS PRN IV MODERATE PAIN Last administered on 08/03/17 21:37; Start 08/03/17 at 21:00; Stop 08/08/17 at 20:59 Acetaminophen (Tylenol) 650 mg PRN Q6HRS PRN PO Headaches, Temp > 101.5F; Start 08/03/17 at 21:00 Ibuprofen (Motrin) 600 mg PRN Q6HRS PRN PO MILD PAIN; Start 08/03/17 at 21:00; Stop 08/04/17 at 12:13; Status DC Magnesium Hydroxide (Milk Of Magnesia) 2,400 mg PRN Q12HR PRN PO CONSTIPATION; Start 08/03/17 at 21:00 Lactulose 20 gm PRN Q12HR PRN PO CONSTIPATION; Start 08/03/17 at 21:00 Bisacodyl (Dulcolax Supp) 10 mg PRN DAILY PRN AL CONSTIPATION; Start 08/03/17 at 21:00 Enoxaparin Sodium (Lovenox 40mg Syringe) 40 mg Q24H SQ Last administered on 20:52; Start 08/04/17 at 21:00 Enoxaparin Sodium (Lovenox 120mg Syringe) 110 mg 1X ONCE SQ Last administered on 08/03/17 21:36; Start 08/03/17 at 21:30; Stop 08/03/17 at 21:31; Status DC Sumatriptan Succinate (Imitrex) 25 mg PRN Q2HR PRN PO MIGRAINE HEADACHE Last administered on 08/04/17 13:21; Start 08/03/17 at 21:15; Stop 08/04/17 at 19:07 ; Status DC Potassium Chloride (Klor-Con) 40 meq 1X ONCE PO Last administered on 23:14; Start 08/03/17 at 23:30; Stop 08/03/17 at 23:31; Status DC Triamterene/HCTZ (Maxzide 37.5/ 25mg) 1 tab DAILY PO Last administered on 09:33; Start 08/04/17 at 09:00 Regadenoson (Lexiscan) 0.4 mg 1X ONCE IV Last administered on 08/04/17 09:00 ; Start 08/04/17 at 09:00; Stop 08/04/17 at 09:01; Status DC Ibuprofen (Motrin) 600 mg TID PO Last administered on 08/06/17 09:34; Start at 13:00 Tizanidine HCl (Zanaflex) 4 mg PRN Q8HRS PRN PO MIGRAINE HEADACHE Last administered on 08/05/17 09:04; Start 08/04/17 at 19:15 Active Scripts Active Oxycodone Hcl 5 Mg Tablet 5 Mg PO PRN Q3HRS PRN Reported Triamterene-Hctz 37.5-25 Mg Cp (Triamterene/Hydrochlorothiazid) 1 Each Capsule 1 Cap PO DAILY Vitals/I & O Vital Sign - Last 24 Hours 08/05/17 08/05/17 08/05/17 08/05/17 14:54 15:00 19:00 20:00 Temp 98.5 98.5 98.5 98.5 Pulse 63 59 Resp 16 21 B/P (MAP) 119/66 (83) 140/68 (92) Pulse Ox 95 96 O2 Delivery Room Air Room Air Room Air Room Air 08/05/17 08/05/17 08/06/17 08/06/17 20:52 23:00 03:00 03:16 Temp 98.6 98.6 98.6 98.6 Pulse 64 66 Resp 20 18 17 20 B/P (MAP) 130/85 (100) 131/86 (101) Pulse Ox 98 98 97 97 O2 Delivery Room Air Room Air Room Air Room Air 08/06/17 08/06/17 08/06/17 08/06/17 04:16 07:45 08:00 09:34 Temp 97.8 97.8 Pulse 64 Resp 20 18 16 B/P (MAP) 144/81 (102) Pulse Ox 97 98 98 O2 Delivery Room Air Room Air Room Air Room Air 08/06/17 11:00 Temp 97.9 97.9 Pulse 68 Resp 20 B/P (MAP) 145/86 (105) Pulse Ox 99 O2 Delivery Room Air Intake and Output 08/06/17 08/06/17 08/07/17 15:00 23:00 07:00 Intake Total 240 ml Balance 240 ml Images MRA: NECK: Thoracic aorta is normal in caliber. A three-vessel aortic arch is identified. Origins of the brachycephalic vessels are normal. Motion artifact limits evaluation. Right common carotid artery is normal in course and caliber. There is no significant stenosis of the proximal right internal carotid artery at the right carotid bifurcation. Right external carotid artery is normal in course and caliber. Left common carotid artery is normal in course and caliber. There is no significant stenosis of the proximal left internal carotid artery at the carotid bifurcation. Left external carotid artery is normal in course and caliber. Patent origin of the cervical vertebral arteries. Normal course and caliber of the vertebral arteries. [place]: Course and caliber of the intracranial internal carotid arteries is normal. Anterior cerebral arteries are normal. Middle cerebral arteries and sylvian branches are normal in caliber. Vertebral arteries are codominant. Basilar artery is normal in course and caliber. Posterior cerebral arteries are normal in course and caliber. Superior cerebellar arteries, anterior inferior cerebellar arteries and posterior inferior cerebellar arteries are normal. There is no aneurysm, vascular malformation or high-grade stenosis/large vessel occlusion. Nonvascular findings: Ventricles, sulci and basal cisterns are normal in appearance. Visualized portions of the brain parenchyma and neck soft tissues are normal in appearance. IMPRESSION: 1. Patent [place] without evidence for aneurysm, vascular malformation or high-grade stenosis/large vessel occlusion. 2. No evidence for significant carotid stenosis. 3. Vertebral arteries are normal in course and caliber. MRI brain ANA LAURA ZARATE MD Aug 06, 2017 11:55
--- NOTE | 2017-08-06 14:03 | PDOC3 ---
Discharge Summary [facility] Date of Admission: Aug 03, 2017 Discharge Date: Aug 06, 2017 Admitting Diagnosis 1. Left sided CP in an adult, initial encounter, 2/2 muscular pain vs anxiety 2. HEadaches, stress vs migraines, vs TMD 3. HTN, controlled hypokalemia Problems: Final Diagnosis CONSULTS neuro card Brief Hospital Course Ms. Lizama is a 52 old F, HTN, comes for left chest pain, CE, EKG neg. MPI neg. also has left headache, which is located under the left ear, worse with biting. MRI, MRA neg. could 2/2 TMD. dc home with oxycodone, ask to fu with ENT or dentist dc time 35min General: Alert, Oriented X3, Cooperative, No acute distress Lungs: Clear Abdomen: Normal bowel sounds, Soft, No tenderness, No hepatosplenomegaly, No masses Extremities: No clubbing, No cyanosis, No edema, Normal pulses, No tenderness/ swelling Skin: No rashes, No breakdown, No significant lesion Patient History: No pertinent family history Problems: Disposition home CONDITION AT DISCHARGE: Improved Diet regular, low salt Scheduled Triamterene/Hydrochlorothiazid (Triamterene-Hctz 37.5-25 Mg Cp), 1 CAP PO DAILY, (Reported) Scheduled PRN Oxycodone Hcl (Oxycodone Hcl), 5 MG PO PRN Q3HRS PRN for BREAKTHROUGH PAIN Discontinued Medications Citalopram Hydrobromide (Citalopram Hbr), 1 TAB PO DAILY, (Reported) Follow Up pcp in 2 weeks LEROY DEL ANGEL MD Aug 06, 2017 14:03
[2017-08-06 15:15] VITALS: BP 142/88
[2017-08-06] MEDS ORDERED: LORazepam 1 MG TABLET PO ONE (17:15)
--- NOTE | 2017-08-07 08:18 | RAD ---
Magnetic resonance imaging (MRI) brain without contrast 08/06/2017 11:50 AM Indication: Migraines, left-sided facial pain. Dizziness and confusion for a few weeks. Comparison: MR angiography August 05, 2017. Technical: Multiplanar, multisequence MR imaging of the brain was performed without intravenous contrast. Findings: Scalp and calvaria are intact. Single nonspecific focus of T2/FLAIR signal hyperintensity is noted in the left frontal periventricular white matter. Sella and suprasellar cistern appear normal. Corpus callosum is intact. There is normal signal intensity involving the brain parenchyma with normal monreal-white matter differentiation. Brainstem is normal in appearance. Ventricles are normal in morphology without evidence for hydrocephalus. Large vessel vascular flow voids are preserved. There is no diffusion signal hyperintensity to suggest acute or subacute ischemia. There is no susceptibility artifact to suggest acute or chronic hemorrhage. Orbits are normal in appearance. Paranasal sinuses are well aerated. Mastoid air cells are well aerated. Visualized portion of the upper cervical spine is normal. IMPRESSION: No evidence for acute or subacute ischemia. Single nonspecific focus of T2/FLAIR signal hyperintensity is noted in the left frontal periventricular white matter. Findings may be within normal limits for patient's age. Alternatively, this finding may be seen in the setting of migraines or early small vessel ischemic changes. Electronically signed by: Farideh Gilbert MD (08/07/2017 8:15 AM) [id number]
== END 2017-08-06 19:57 | disposition home or self-care (01) | DRG 103 ==
LOC: ER 20:02 → 2 SOUTH 22:54
PROVIDERS: ADMIT Internal Medicine; ATTEND Internal Medicine
DX: G43.809 Other migraine, not intractable, without status migrainosus (principal); I10 Essential (primary) hypertension; E87.6 Hypokalemia; F41.9 Anxiety disorder, unspecified; R07.89 Other chest pain; F32.9 Major depressive disorder, single episode, unspecified; T50.2X5A Adverse effect of carbonic-anhydrase inhibitors, benzothiadiazides and other diuretics, initial encounter; Z98.51 Tubal ligation status; Z88.8 Allergy status to other drugs, medicaments and biological substances
CPT/HCPCS: 36415; 70544; 70547; 70551; 71010; 78452; 80053; 82553; 84132; 84484; 85025; 93005; 93017; 96374; 96375; A9500; J1650; J1885; J2270; J2785; 99285-25